=== PATIENT | male | born 1970 | race Hispanic/Latino ===

== ENCOUNTER 2016-11-15 10:13 | Emergency (ER) | payer BC ==
[2016-11-15 10:13] VITALS: BMI 29.2
[2016-11-15 10:43] VITALS: BP 123/70; PULSE 88; RESP 17; TEMP 97; O2SAT 99
--- NOTE | 2016-11-15 11:08 | ED PDOC ---
HPI: General Adult Time Seen by Provider: 11/15/16 11:00 Chief Complaint (Nursing): ENT Problem Chief Complaint (Provider): sore throat History Per: Patient History/Exam Limitations: no limitations Additional Complaint(s): 44[facility] where he was seen and referred to the ED to rule out tonsillar abscess. Patient states he gets strep annually and felt his symptoms are consistent with what he is used to. Reports this has been ongoing for 1 day. Reports a sore throat with pain with swallowing but no difficulty swallowing. Denies neck pain, fever, or change in voice. Past Medical History Reviewed: Historical Data, Nursing Documentation, Vital Signs Vital Signs: Last Vital Signs Temp 97 F L 11/15/16 10:41 Pulse 88 11/15/16 10:41 Resp 17 11/15/16 10:41 BP 123/70 11/15/16 10:41 Pulse Ox 99 11/15/16 11:26 - Medical History PMH: No Chronic Diseases - Surgical History Surgical History: No Surg Hx - Family History Family History: States: Unknown Family Hx - Social History Drugs: Denies - Home Medications Home Medications: Ambulatory Orders Medication Instructions Recorded Bupropion HCl [Wellbutrin Sr] 1 tab PO DAILY 03/15/14 Amoxicillin/Clavulanate [Augmentin 1 tab PO BID #20 tab 12/20/15 875 MG-125 MG] oxyCODONE/Acetaminophen [Percocet 1 ea PO Q6 PRN #10 tab 12/20/15 5/325 mg Tab] Amoxicillin 500 mg PO BID #20 tablet 11/15/16 - Allergies Allergies/Adverse Reactions: Allergies Allergy/AdvReac Type Severity Reaction Status Date / Time No Known Allergies Allergy Verified 11/15/16 10:40 Review of Systems ROS Statement: Except As Marked, All Systems Reviewed And Found Negative Constitutional: Negative for: Fever ENT: Positive for: Throat Pain, Other (pain with swallowing, no difficulty). Negative for: Ear Pain Cardiovascular: Negative for: Chest Pain, Palpitations, Paroxysmal Noc. Dyspnea Respiratory: Negative for: Cough, Shortness of Breath, Hemoptysis, SOB with Exertion, Pleuritic Pain, Sputum, Wheezing Gastrointestinal: Negative for: Nausea, Vomiting, Abdominal Pain, Diarrhea Physical Exam - Reviewed Nursing Documentation Reviewed: Yes Vital Signs Reviewed: Yes - Physical Exam Appears: Positive for: Well, Non-toxic, No Acute Distress (tolerating secretions , phonating normally) Head Exam: Positive for: ATRAUMATIC, NORMAL INSPECTION, NORMOCEPHALIC Skin: Positive for: Warm, Dry Eye Exam: Positive for: EOMI, PERRL ENT: Positive for: Pharyngeal Erythema, Tonsillar Exudate, Tonsillar Swelling (b /l swelling, with no obvious abscess), Other (Uvula is midline. Cervical lymphadenopathy. No trismus. Normal phonation.) Neck: Positive for: Normal, Supple Cardiovascular/Chest: Positive for: Regular Rate, Rhythm Respiratory: Positive for: Normal Breath Sounds. Negative for: Rales, Rhonchi, Wheezing Extremity: Positive for: Normal ROM - Laboratory Results Result Diagrams: 11/15/16 12:00 11/15/16 12:00 - ECG O2 Sat by Pulse Oximetry: 99 (RA) Pulse Ox Interpretation: Normal Medical Decision Making Medical Decision Makin Presentation appears more consistent with strep pharyngitis and based on centor criteria- exudate, absense of cough and tender cervical LAD, would treat. Will get CT Neck soft tissue to rule out peritonsillar abscess. Will give decadron, toradol and amoxicillin pending CT 3:09PM CT shows parapharyngeal soft tissue swelling but no abscess. Patient reports that he feels better. He has normal phonation and is tolerating secretions. He is afebrile will normal vitals. He was given detailed return instructions and will take amoxicillin rx. He will return with any worsening symptoms and follow-up with PMD. Disposition - Clinical Impression Clinical Impression: Pharyngitis - Disposition Referrals: Sean Moser MD [Staff Provider] - Disposition: Routine/Home Disposition Time: 15:02 Condition: GOOD Additional Instructions: Follow up with ENT within 2 days. Return to ED if condition worsens. Take full course of antibiotics. Prescriptions: Amoxicillin 500 mg PO BID #20 tablet Instructions: Pharyngitis (ED) Forms: [facility] ED School/Work Excuse Additional Comments - Additional Comments Additional Comments: Scribe Attestation Documented by Yung Bueno acting as a scribe for Erin Lezama MD. Provider Attestation: All medical record entries made by the Scribe were at my direction and personally dictated by me. I have reviewed the chart and agree that the record accurately reflects my personal performance of the history, physical exam, medical decision making, and the department course for this patient. I have also personally directed, reviewed, and agree with the discharge instructions and disposition.
[2016-11-15] MEDS ORDERED: Dexamethasone 4 mg/1 ml IM ONE (11:19)
[2016-11-15] MEDS ORDERED: Dexamethasone 10 MG in Sodium Chloride 0.9% 50 ML IV STA (11:27)
[2016-11-15] MEDS ORDERED: Sodium Chloride 0.9% 1,000 ML IV SCH (11:30)
[2016-11-15 12:14] LABS: BASO # 0.1 K/uL (0.0-0.2); BASO % 0.5 % (0.0-2.0); EOS # 0.3 K/uL (0.0-0.7); EOS % 2.4 % (0.0-4.0); HEMATOCRIT 44.8 % (35.0-51.0); LYMPH # 2.4 K/uL (1.0-4.3); LYMPH % 17.9 % (20.0-40.0); MEAN CELL VOLUME 91.4 fl (80.0-94.0); MEAN CORPUSCULAR HEMOGLOBIN 32.1 pg (27.0-31.0); MEAN CORPUSCULAR HGB CONC 35.2 g/dL (33.0-37.0); MEAN PLATELET VOLUME 8.1 fl (7.2-11.7); MONO # 0.8 K/uL (0.0-0.8); MONO % 6.3 % (0.0-10.0); NEUT # 9.7 K/uL (1.8-7.0); NEUT % 72.9 % (50.0-75.0); RED CELL DISTRIBUTION WIDTH 13.5 % (11.5-14.5); WHITE BLOOD COUNT 13.4 K/uL (4.8-10.8)
[2016-11-15 12:21] LABS: ALB/GLOB RATIO 1.3 (1.0-2.1); ALKALINE PHOSPHATASE 87 U/L (38-126); ALT/SGPT 44 U/L (21-72); AST/SGOT 22 U/L (17-59); BILIRUBIN,TOTAL 0.7 mg/dl (0.2-1.3); BLOOD UREA NITROGEN 16 mg/dl (9-20); CARBON DIOXIDE 24 mmol/L (22-30); CHLORIDE 106 mmol/L (98-107); GFR AFRICAN-AMERICAN > 60; GLUCOSE,RANDOM 132 mg/dL (75-110); POTASSIUM 4.2 MMOL/L (3.6-5.0); SODIUM 140 mmol/l (132-148); TOTAL PROTEIN 7.5 G/DL (6.3-8.2)
[2016-11-15] MEDS ORDERED: Iohexol 300 100 ML IJ ONE (13:31)
[2016-11-15] MEDS ORDERED: Sodium Chloride 0.9% 50 ML IV ONE (13:31)
--- NOTE | 2016-11-15 14:50 | CT ---
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 Coronal and sagittal reformats generated. Intravenous contrast dose: 100 cc of Omnipaque 300 Radiation dose: DLP 565 mGy-cm This CT exam was performed using one or more of the following dose reduction techniques: Automated exposure control, adjustment of the mA and/or kV according to patient size, and/or use of iterative reconstruction technique. FINDINGS: NASOPHARYNX: Unremarkable. SUPRAHYOID NECK: Significant but relatively symmetric para variant geode all soft tissue hypertrophy with associated severe narrowing of the lumen in the oropharynx to roughly 4 millimeters in greatest transverse dimension. No evidence of focal abscess. Recommend correlation with direct visual inspection as clinically indicated. INFRAHYOID NECK: Unremarkable larynx, hypopharynx, and supraglottic space. Vocal cords intact. MASS: None. GLANDS: Parotid and submandibular glands unremarkable. Normal size thyroid gland, without nodule. LYMPH NODES: Normal. No lymphadenopathy. CERVICAL SPINE: No fracture or focal lesion. VASCULAR STRUCTURES: Unremarkable. OTHER FINDINGS: None. IMPRESSION: Significant but relatively symmetric para variant geode all soft tissue hypertrophy with associated severe narrowing of the lumen in the oropharynx to roughly 4 millimeters in greatest transverse dimension. No evidence of focal abscess. Recommend correlation with direct visual inspection as clinically indicated.
== END 2016-11-15 15:09 | disposition home or self-care (01) ==
LOC: H.ER 10:13
DX: J02.9 Acute pharyngitis, unspecified (principal); R07.0 Pain in throat
CPT/HCPCS: 70491; 80053; 85025; 96361; 96374; 96375; 99284; J1100; J1885; J7040; Q9967